=== PATIENT | female | born 1995 | race African-American/Black ===

== ENCOUNTER 2020-08-03 10:57 | Emergency (ER) | payer OTHER ==
[~2020-08-03] VITALS: Ht 165.1 cm; Wt 63.0 kg
[2020-08-03 11:55] VITALS: BP 123/77
[2020-08-03 12:02] LABS: BILIRUBIN,URINE NEGATIVE (NEG); CLARITY,URINE CLEAR; COLOR,URINE RED; NITRITE,URINE NEGATIVE (NEG); PROTEIN,URINE 100 mg/dL (NEG-TRACE); UROBILINOGEN,URINE 0.2 mg/dL (0.2 mg/dL)
--- NOTE | 2020-08-03 12:13 | PHYS DOC ---
Past Medical History Past Medical History: No Pertinent History Past Surgical History: No Surgical History Smoking Status: Never Smoker Alcohol Use: None Drug Use: None General Adult EDM: Chief Complaint: VAGINAL BLEEDING HPI: HPI: 25 years old female presented to the ER with chief complaint of vaginal bleeding and abdominal pain. The abdominal cramps started 12 PM last night. At 9 AM today, patient woke up and noticed blood on her bed sheet. Patient had 1 bloody pad since ED arrival. When asked patient reports bloody as "liquid without clumps". Patient menstrual cycle was on the 12th of every month. Patient reports June 30, patient did not experience menstruation and therefore tested positive for with home test. Patient reported to test herself 3 times all come back positive. Patient stated this is not planned and have not consult OIL CHANGE TECHNICIAN since positive urine at home. Her 2 previous had no complications. She denies headache, nausea, vomiting, diarrhea, dysuria, chest pain, shortness of breath, muscle pain, and joint pain. Patient denies having history of STDs. Review of Systems: Review of Systems: Constitutional: Denies fever or chills Eyes: Denies redness or eye pain HENT: Denies nasal congestion or sore throat Respiratory: Denies cough or shortness of breath Cardiovascular: Denies chest pain or palpitations GI: Denies nausea, or vomiting, reports abdominal pain below the umbilicus on left and right : Denies dysuria or hematuria, reports abnormal vaginal bleeding; reports Musculoskeletal: Denies back pain or joint pain Integument: Denies rash or skin lesions Neurologic: Denies headache, focal weakness or sensory changes Complete systems were reviewed and found to be within normal limits, except as documented in this note. Family History: Family History: Noncontributory. Healthy parents, 2 siblings, 2 children Physical Exam: PE: Constitutional: Well developed, well nourished, no acute distress, non-toxic appearance HENT: Normocephalic, atraumatic Eyes: conjunctiva normal, no discharge Neck: Normal range of motion, no tenderness, supple Lungs & Thorax: No respiratory distress, equal chest rise and fall, CTAB Heart: Normal S1-S2 no murmur Abdomen: Soft, report tenderness below the umbilicus bilaterally Skin: Warm, dry, no erythema, no rash Extremities: No tenderness, no edema Neurologic: Alert and oriented X 3, no focal deficits noted Psychologic: Affect normal, judgment normal Current Patient Data: Labs: Laboratory Tests Test 08/03/20 11:49 POC Urine HCG, Qualitative Hcg negative (Negative) Vital Signs: Vital Signs Date Time Temp Pulse Resp B/P (MAP) Pulse Ox O2 Delivery O2 Flow Rate FiO2 08/03/20 11:55 97.9 82 18 123/77 (92) 99 Room Air 97.9 Course & Med Decision Making: Course & Med Decision Making 25 years old female presented to the ER with chief complaint of abdominal pain and vaginal bleeding. She insisted to be because she tested herself 3 times at home and positive for . In the ED, patient have a negative urine test. Differential diagnosis 1- menstrual cramp with delayed menstruation. 2- potential spontaneous which is unlikely given bleeding started this morning and ER urine is negative. Patient stable for discharge with outpatient follow-up with PCP/CHERRY DIPPER. Discussed findings and plan with patient, who acknowledges understanding and agreement. Daksha Disclaimer: Daksha Disclaimer: This electronic medical record was generated, in whole or in part, using a voice recognition dictation system. Departure Departure Impression: Primary Impression: Menstrual cramps Additional Impressions: Vaginal bleeding Feared condition not demonstrated Disposition: 01 DC HOME SELF CARE/HOMELESS Condition: STABLE Referrals: UNKNOWN PCP NAME (PCP) Additional Instructions: Your test today was "negative" Please follow closely with your OIL CHANGE TECHNICIAN for further evaluation. Your cramping and bleeding is likely secondary to your monthly menstrual cycle. Take over the counter Tylenol and/or Ibuprofen for pain or discomfort JUAN LUIS SPEARS DO Aug 03, 2020 12:13
[2020-08-03 12:15] LABS: RBC,URINE TNTC /HPF (0-2)
[2020-08-03 12:16] LABS: BACTERIA,URINE FEW /HPF (0-FEW); WBC,URINE 0 /HPF (0-4)
--- NOTE | 2020-08-03 12:20 | PHYS DOC ---
Past Medical History Past Medical History: No Pertinent History Past Surgical History: No Surgical History Smoking Status: Never Smoker Alcohol Use: None General Adult EDM: Chief Complaint: VAGINAL BLEEDING HPI: HPI: 25 years old female presented to the ER with chief complaint of vaginal bleeding and abdominal pain. The abdominal cramps started 12 PM last night. 9 AM today, patient woke up and noticed blood on her bed sheet. Since then, patient had 3-4 bloody episode going to the bathroom. Patient had 1 bloody pad since ED arrival. When asked patient reports bloody as "liquid without clumps". Patient menstrual cycle was on the 12th of every month. June 30, patient did not experience menstruation and therefore tested positive for at home. Patient reported to test herself 3 times all come back positive. Patient stated this is not planned and have not consult CERAMICS INSTRUCTOR since positive urine at home. Her 2 previous had no complications. She denies headache, nausea, vomiting, diarrhea, dysuria, chest pain, shortness of breath, muscle pain, and joint pain. Patient denies having history of or current STD Review of Systems: Review of Systems: Constitutional: Denies fever or chills Eyes: Denies redness or eye pain HENT: Denies nasal congestion or sore throat Respiratory: Denies cough or shortness of breath Cardiovascular: Denies chest pain or palpitations GI: Denies nausea, or vomiting, reports abdominal pain below the umbilicus on left and right : Denies dysuria or hematuria, reports vaginal bleeding during sleep, 3-4 times bleed while going to toilet, 1 female bloody pad Musculoskeletal: Denies back pain or joint pain Integument: Denies rash or skin lesions Neurologic: Denies headache, focal weakness or sensory changes Complete systems were reviewed and found to be within normal limits, except as documented in this note. Heart Score: Risk Factors: Risk Factors: DM, Current or recent (<one month) smoker, HTN, HLP, family history of CAD, obesity. Risk Scores: Score 0 - 3: 2.5% MACE over next 6 weeks - Discharge Home Score 4 - 6: 20.3% MACE over next 6 weeks - Admit for Clinical Observation Score 7 - 10: 72.7% MACE over next 6 weeks - Early Invasive Strategies Family History: Family History: Noncontributory. Healthy parents, 2 siblings, 2 children Physical Exam: PE: Constitutional: Well developed, well nourished, no acute distress, non-toxic appearance HENT: Normocephalic, atraumatic Eyes: conjunctiva normal, no discharge Neck: Normal range of motion, no tenderness, supple Lungs & Thorax: No respiratory distress, equal chest rise and fall, CTAB Heart: Normal S1-S2 no murmur Abdomen: Soft, report tenderness below the umbilicus bilaterally Skin: Warm, dry, no erythema, no rash Extremities: No tenderness, no edema Neurologic: Alert and oriented X 3, normal motor function, normal sensory function, no focal deficits noted Psychologic: Affect normal, judgment normal Urine negative. Did not do pelvic exam on her. Current Patient Data: Labs: Laboratory Tests Test 08/03/20 11:49 POC Urine HCG, Qualitative Hcg negative (Negative) Vital Signs: Vital Signs Date Time Temp Pulse Resp B/P (MAP) Pulse Ox O2 Delivery O2 Flow Rate FiO2 08/03/20 11:55 97.9 82 18 123/77 (92) 99 Room Air 97.9 EKG: EKG: [] Radiology/Procedures: Radiology/Procedures: [] Course & Med Decision Making: Course & Med Decision Making Pertinent Labs and Imaging studies reviewed. (See chart for details) [] Daksha Disclaimer: Daksha Disclaimer: This electronic medical record was generated, in whole or in part, using a voice recognition dictation system. Departure Departure Referrals: UNKNOWN PCP NAME (PCP) JUAN LUIS SPEARS DO Aug 03, 2020 12:20
== END 2020-08-03 12:33 | disposition home or self-care (01) ==
LOC: ER 10:57
DX: N93.9 Abnormal uterine and vaginal bleeding, unspecified (principal); N94.6 Dysmenorrhea, unspecified; R10.33 Periumbilical pain; Z71.1 Person with feared health complaint in whom no diagnosis is made
CPT/HCPCS: 81001; 81025; 99283